=== PATIENT | male | born 2000 | race Caucasian/White ===

== ENCOUNTER 2021-02-25 19:02 | Emergency (ER) | payer OTHER ==
[2021-02-25] MEDS ORDERED: NAPROSYN500 MG PO (22:30)
== END 2021-02-25 22:40 | disposition home or self-care (01) ==
LOC: ER1 19:02
DX: S39.011A Strain of muscle, fascia and tendon of abdomen, initial encounter (principal); R07.89 Other chest pain; W22.8XXA Striking against or struck by other objects, initial encounter
CPT/HCPCS: 71111; 99283

== ENCOUNTER 2021-10-20 18:57 | Emergency (ER) | payer OTHER ==
[~2021-10-20 18:57] MED LIST: NAPROSYN500 MG PO
== END 2021-10-20 21:00 | disposition home or self-care (01) ==
LOC: ER1 18:57
DX: S62.632A Displaced fracture of distal phalanx of right middle finger, initial encounter for closed fracture (principal); Z23 Encounter for immunization; X58.XXXA Exposure to other specified factors, initial encounter
CPT/HCPCS: 12001; 73130; 90715; 99283